=== PATIENT | female | born 1970 | race Hispanic/Latino ===

== ENCOUNTER 2022-01-18 08:32 | Outpatient (CLI) | payer OTHER | END 2022-01-18 08:33 | disposition home or self-care (01) | LOC: BICRAD 08:32 | PROVIDERS: ATTEND Family Medicine | DX: F17.200 Nicotine dependence, unspecified, uncomplicated (principal) | CPT/HCPCS: 71046 ==

== ENCOUNTER 2022-11-28 19:40 | Emergency (ER) | payer SELFPAY ==
[2022-11-28] MEDS ORDERED: Diazepam 5 MG TAB ONE (22:58)
[2022-11-28] MEDS ORDERED: Ketorolac Tromethamine 30 MG/ML VIAL ONE (22:58)
== END 2022-11-28 23:20 | disposition home or self-care (01) ==
LOC: ERS 19:40
DX: M54.30 Sciatica, unspecified side (principal); F17.210 Nicotine dependence, cigarettes, uncomplicated
CPT/HCPCS: 96372; 99283; J1885

== ENCOUNTER 2023-06-16 07:49 | Inpatient (IN) | payer SELFPAY ==
[2023-06-16] MEDS ORDERED: Morphine 4 MG/ML VIAL ONE ×2 (08:06→09:36)
[2023-06-16] MEDS ORDERED: Ondansetron PF 4 MG/2 ML Vial ONE (08:06)
[2023-06-16 08:12] LABS: Hematocrit 46.2 % (36.0-47.0); Hemoglobin 15.6 g/dL (12.0-16.0); Manual Diff?? YES; Mean Corpuscular HGB CONC 33.8 g/dL (32.0-36.0); Mean Corpuscular Hemoglobin 28.7 pg (27.0-31.0); Mean Corpuscular Volume 85.1 fl (78.0-98.0); Mean Platelet Volume 9.4 fL (7.4-10.4); Platelet Count 407 10x3/uL (130-400); RBC Distribution Width 17.3 % (11.5-14.5); Red Blood Cell (RBC) Count 5.43 mill/uL (4.20-5.40); White Blood Cell (WBC) Count 30.8 10x3/uL (4.8-10.8)
[2023-06-16 08:35] LABS: Delete Auto Diff?? YES
[2023-06-16 09:34] LABS: Anisocytosis MODERATE=16-30 cells HPF (0-5); Band 4 % (5-11); CellaVision Operator ID LAB.CMB; Hypochromia SLIGHT = 6-15 cells HPF (0-5); Lymphocytes 4 % (21-51); Macrocytosis MODERATE=16-30 cells HPF (0-5); Monocytes 5 % (0-10); Neutrophil 85 % (42-75); Platelet Adequacy Comment Platelets Increased; Polychromasia MARKED = >4 cells HPF (0-2); Reactive Lymphocytes 2 % (0-10); Total Cell Count 103
[2023-06-16] MEDS ORDERED: Piperacillin/Tazobactam 4.5 GM VIAL ONE (09:41)
[2023-06-16] MEDS ORDERED: Sodium Chloride 0.9% 100 ML ONE (09:41)
[2023-06-16] MEDS ORDERED: Vancomycin 1 GM/200 ML (FROZEN) BAG ONE (09:49)
[2023-06-16 10:08] LABS: Troponin I Less than 0.010 ng/mL (< 0.028)
[2023-06-16 10:52] LABS: Albumin 4.2 g/dL (3.5-5.0)
[2023-06-16 10:53] LABS: Calcium 9.4 mg/dL (7.8-10.44); Chloride 107 mmol/L (98-107); Potassium 3.4 mmol/L (3.5-5.1); Sodium 139 mmol/L (136-145)
[2023-06-16 10:54] LABS: Globulin 3.1 g/dL (2.4-3.5); Glucose 111 mg/dL (70-105); Protein, Total 7.3 g/dL (6.0-8.3)
[2023-06-16 10:56] LABS: Anion Gap 18 mmol/L (10-20); Bilirubin, Total 1.2 mg/dL (0.2-1.2); Carbon Dioxide 17 mmol/L (22-29)
[2023-06-16 10:57] LABS: Alkaline Phosphatase 86 U/L (40-110)
[2023-06-16 10:58] LABS: BUN (Urea Nitrogen) 15 mg/dL (9.8-20.1); Calc. Creatinine Clearance 0 mL/min (70-130); Estimated GFR 105
[2023-06-16 10:59] LABS: AST (SGOT) 13 U/L (5-34)
[2023-06-16 11:00] LABS: ALT (SGPT) 17 U/L (8-55); Lipase 9 U/L (8-78)
[2023-06-16] MEDS ORDERED: Ketorolac Tromethamine 30 MG (1 mL) VIAL ONE (12:00)
[2023-06-16 12:05] LABS: Lactic Acid 2.2 mmol/L (0.5-2.2)
[2023-06-16] MEDS ORDERED: Ondansetron ODT 4 MG TAB PO PRN (12:34)
[2023-06-16] MEDS ORDERED: Acetaminophen 325 MG TAB PO PRN (12:34)
[2023-06-16] MEDS ORDERED: Iopamidol-370 76% 500 ML MDV (1 ML CHARGE) ONE (13:02)
[2023-06-16 13:04] LABS: Bacteria/HPF None Seen HPF (None Seen); Bilirubin Negative (Negative); Blood, Urine Negative (Negative); CAUTI Indications for Culture Pelvic or flank pain; Clarity Clear (Clear); Glucose, Urine (Dipstick) Normal (Negative); Ketone, Urine 20 mg/dL (Negative); Leukocyte Negative Leu/uL (Negative); Nitrite Negative (Negative); Protein, Urine (Dipstick) Negative (Neg-Trace); RBC/HPF 0-3 HPF (0-3); Specific Gravity, Urine Greater than 1.060 (1.002-1.036); Squamous Epithelial 0-3 HPF (0-3); Urobilinogen Normal mg/dL (Less than 2); WBC/HPF 0-3 HPF (0-3); pH, Urine 7.5 (5.0-9.0)
[2023-06-16 13:05] LABS: Urine Culture Reflex No No
[2023-06-16 13:43] LABS: INR-International Normal Ratio 1.1; PTT 25.1 sec (22.9-36.1); Prothrombin Time 13.9 sec (12.0-14.7)
[2023-06-16 13:55] VITALS: BMI 27.1
[2023-06-16] MEDS: HYDROcodone/Acetaminophen 5/325 mg Tablet PO PRN ×2 (14:07→20:39)
[2023-06-16] MEDS: Sodium Chloride 0.9% 1,000 ML IV SCH ×2 (14:08→23:28)
[2023-06-16] MEDS: Ondansetron PF 4 MG/2 ML Vial IVP PRN ×2 (14:56→20:40)
[2023-06-16] MEDS ORDERED: Electrolyte Replacement Protocol 1 EACH FS PRN (16:00)
[2023-06-16] MEDS: Morphine 2 MG/ML VIAL SLOW IVP PRN ×3 (16:17→23:28)
[2023-06-16] MEDS: Phenol 177 ML BOT PO PRN ×2 (20:40→23:28)
[2023-06-17] MEDS: traMADol HCl 50 MG TAB PO PRN ×4 (00:43→19:53)
[2023-06-17] MEDS: HYDROcodone/Acetaminophen 5/325 mg Tablet PO PRN (03:37)
[2023-06-17] MEDS: Phenol 177 ML BOT PO PRN ×4 (03:41→19:54)
[2023-06-17] MEDS ORDERED: Potassium Chloride 20 MEQ TAB PO SCH (08:00)
[2023-06-17] MEDS: Sodium Chloride 0.9% 1,000 ML IV SCH ×2 (08:31→22:36)
[2023-06-17 09:22] LABS: #Monocytes 1.7 thou/uL (0.11-0.59); #Neutrophils 9.4 thou/uL (1.40-6.50); %Basophils 0.2 % (0.0-1.0); %Eosinophils 0.3 % (0.0-10.0); %Lymphocytes 15.5 % (21.0-51.0); %Neutrophils 70.8 % (42.0-75.0); Hematocrit 39.3 % (36.0-47.0); Hemoglobin 12.8 g/dL (12.0-16.0); Mean Corpuscular HGB CONC 32.6 g/dL (32.0-36.0); Mean Corpuscular Hemoglobin 28.3 pg (27.0-31.0); Mean Corpuscular Volume 86.9 fl (78.0-98.0); Mean Platelet Volume 10.9 fL (7.4-10.4); Platelet Count 384 10x3/uL (130-400); RBC Distribution Width 17.5 % (11.5-14.5); Red Blood Cell (RBC) Count 4.52 mill/uL (4.20-5.40); White Blood Cell (WBC) Count 13.3 10x3/uL (4.8-10.8)
[2023-06-17 09:44] LABS: ALT (SGPT) 16 U/L (8-55); AST (SGOT) 11 U/L (5-34); Albumin 4.1 g/dL (3.5-5.0); Alkaline Phosphatase 68 U/L (40-110); Anion Gap 15 mmol/L (10-20); BUN (Urea Nitrogen) 20 mg/dL (9.8-20.1); Bilirubin, Total 1.5 mg/dL (0.2-1.2); Calc. Creatinine Clearance 112 mL/min (70-130); Calcium 9.2 mg/dL (7.8-10.44); Carbon Dioxide 23 mmol/L (22-29); Chloride 107 mmol/L (98-107); Estimated GFR 104; Globulin 3.2 g/dL (2.4-3.5); Glucose 98 mg/dL (70-105); Potassium 3.8 mmol/L (3.5-5.1); Protein, Total 7.3 g/dL (6.0-8.3); Sodium 141 mmol/L (136-145)
[2023-06-17] MEDS: Morphine 2 MG/ML VIAL SLOW IVP PRN ×3 (12:33→22:36)
[2023-06-18] MEDS: traMADol HCl 50 MG TAB PO PRN ×5 (00:03→22:50)
[2023-06-18] MEDS: Morphine 2 MG/ML VIAL SLOW IVP PRN ×5 (02:36→21:21)
[2023-06-18 05:36] LABS: #Eosinphils 0.3 thou/uL (0.0-0.7); #Monocytes 1.7 thou/uL (0.11-0.59); #Neutrophils 7.7 thou/uL (1.40-6.50); %Basophils 0.3 % (0.0-1.0); %Eosinophils 2.4 % (0.0-10.0); %Lymphocytes 24.7 % (21.0-51.0); %Neutrophils 59.3 % (42.0-75.0); Hematocrit 33.3 % (36.0-47.0); Hemoglobin 10.8 g/dL (12.0-16.0); Mean Corpuscular HGB CONC 32.4 g/dL (32.0-36.0); Mean Corpuscular Hemoglobin 28.8 pg (27.0-31.0); Mean Corpuscular Volume 88.8 fl (78.0-98.0); Mean Platelet Volume 9.5 fL (7.4-10.4); Platelet Count 335 10x3/uL (130-400); RBC Distribution Width 17.3 % (11.5-14.5); Red Blood Cell (RBC) Count 3.75 mill/uL (4.20-5.40); White Blood Cell (WBC) Count 12.9 10x3/uL (4.8-10.8)
[2023-06-18] MEDS: Sodium Chloride 0.9% 1,000 ML IV SCH ×2 (06:32→16:11)
[2023-06-18] MEDS: Phenol 177 ML BOT PO PRN (16:11)
[2023-06-19] MEDS: Morphine 2 MG/ML VIAL SLOW IVP PRN ×2 (01:35→05:25)
[2023-06-19] MEDS: Phenol 177 ML BOT PO PRN (01:35)
[2023-06-19] MEDS: Sodium Chloride 0.9% 1,000 ML IV SCH ×2 (03:29→12:12)
[2023-06-19] MEDS: traMADol HCl 50 MG TAB PO PRN ×3 (04:16→23:32)
[2023-06-19 05:41] LABS: #Eosinphils 0.1 thou/uL (0.0-0.7); #Monocytes 1.4 thou/uL (0.11-0.59); #Neutrophils 7.9 thou/uL (1.40-6.50); %Basophils 0.3 % (0.0-1.0); %Eosinophils 1.1 % (0.0-10.0); %Lymphocytes 17.6 % (21.0-51.0); %Monocytes 12.1 % (0.0-10.0); %Neutrophils 68.6 % (42.0-75.0); Hematocrit 33.9 % (36.0-47.0); Hemoglobin 11.2 g/dL (12.0-16.0); Mean Corpuscular Hemoglobin 29.2 pg (27.0-31.0); Mean Corpuscular Volume 88.3 fl (78.0-98.0); Mean Platelet Volume 9.4 fL (7.4-10.4); Platelet Count 348 10x3/uL (130-400); RBC Distribution Width 17.3 % (11.5-14.5); Red Blood Cell (RBC) Count 3.84 mill/uL (4.20-5.40); White Blood Cell (WBC) Count 11.6 10x3/uL (4.8-10.8)
[2023-06-19 08:13] LABS: Anion Gap 15 mmol/L (10-20); BUN (Urea Nitrogen) 15 mg/dL (9.8-20.1); Calc. Creatinine Clearance 132 mL/min (70-130); Calcium 8.3 mg/dL (7.8-10.44); Carbon Dioxide 19 mmol/L (22-29); Chloride 108 mmol/L (98-107); Estimated GFR 108; Magnesium 1.8 mg/dL (1.6-2.6); Phosphorus 3.2 mg/dL (2.3-4.7); Potassium 3.4 mmol/L (3.5-5.1); Sodium 139 mmol/L (136-145)
[2023-06-19 08:18] LABS: Glucose 44 mg/dL (70-105)
[2023-06-19] MEDS: Acetaminophen 500 MG TAB PO SCH ×3 (08:21→20:00)
[2023-06-19] MEDS ORDERED: Glucagon 1 MG/ML KIT IM PRN (08:36)
[2023-06-19] MEDS ORDERED: Dextrose 5% in Water 1,000 ML IV PRN (08:36)
[2023-06-19] MEDS ORDERED: Dextrose 50% Abboject 50 ML SYRINGE SLOW IVP PRN (08:36)
[2023-06-19] MEDS ORDERED: Magnesium 2 GM/50 ML(in water) 2 GM in Premix 1 BAG IVPB SCH (09:00)
[2023-06-19] MEDS ORDERED: Potassium Chloride 20 MEQ TAB PO SCH ×2 (09:00→13:00)
[2023-06-19] MEDS: Ondansetron PF 4 MG/2 ML Vial IVP PRN (19:33)
[2023-06-20] MEDS: Acetaminophen 500 MG TAB PO SCH ×4 (02:45→20:35)
[2023-06-20] MEDS: traMADol HCl 50 MG TAB PO PRN ×2 (04:06→13:00)
[2023-06-20 05:37] LABS: #Eosinphils 0.1 thou/uL (0.0-0.7); #Monocytes 1.3 thou/uL (0.11-0.59); #Neutrophils 5.3 thou/uL (1.40-6.50); %Basophils 0.3 % (0.0-1.0); %Eosinophils 1.4 % (0.0-10.0); %Lymphocytes 22.8 % (21.0-51.0); %Monocytes 14.4 % (0.0-10.0); %Neutrophils 60.6 % (42.0-75.0); Hematocrit 33.9 % (36.0-47.0); Hemoglobin 11.3 g/dL (12.0-16.0); Mean Corpuscular HGB CONC 33.3 g/dL (32.0-36.0); Mean Corpuscular Hemoglobin 29.4 pg (27.0-31.0); Mean Corpuscular Volume 88.1 fl (78.0-98.0); Mean Platelet Volume 9.6 fL (7.4-10.4); Platelet Count 379 10x3/uL (130-400); RBC Distribution Width 17.2 % (11.5-14.5); Red Blood Cell (RBC) Count 3.85 mill/uL (4.20-5.40); White Blood Cell (WBC) Count 8.8 10x3/uL (4.8-10.8)
[2023-06-20 06:00] LABS: Anion Gap 13 mmol/L (10-20); BUN (Urea Nitrogen) 5 mg/dL (9.8-20.1); Calc. Creatinine Clearance 125 mL/min (70-130); Calcium 8.4 mg/dL (7.8-10.44); Carbon Dioxide 20 mmol/L (22-29); Chloride 110 mmol/L (98-107); Estimated GFR 107; Glucose 99 mg/dL (70-105); Potassium 3.7 mmol/L (3.5-5.1); Sodium 139 mmol/L (136-145)
[2023-06-20 06:03] LABS: Phosphorus 2.1 mg/dL (2.3-4.7)
[2023-06-20] MEDS ORDERED: Magnesium 2 GM/50 ML(in water) 2 GM in Premix 1 BAG IVPB SCH (08:00)
[2023-06-20] MEDS: PHOS-NAK 1 PKT PACK PO SCH ×2 (09:26→20:34)
[2023-06-20] MEDS: Ondansetron PF 4 MG/2 ML Vial IVP PRN (14:14)
[2023-06-20] MEDS ORDERED: Ibuprofen 200 MG TAB PO PRN (14:53)
[2023-06-20] MEDS ORDERED: Scopolamine 1 mg/72 hour Patch TD SCH (15:00)
[2023-06-21] MEDS: Ondansetron PF 4 MG/2 ML Vial IVP PRN (01:19)
[2023-06-21] MEDS: Acetaminophen 500 MG TAB PO SCH ×2 (02:19→10:43)
[2023-06-21] MEDS ORDERED: Famotidine/PF 20 mg/2ml Vial SLOW IVP SCH (03:00)
[2023-06-21] MEDS ORDERED: Ketorolac Tromethamine 30 MG (1 mL) VIAL IVP SCH (03:00)
[2023-06-21 08:35] VITALS: BP 135/78; TEMP 97.8
[2023-06-21] MEDS ORDERED: Famotidine 20 MG TAB PO SCH (10:30)
== END 2023-06-21 13:00 | disposition home or self-care (01) | DRG 390 ==
LOC: ERS 07:49 → SURG A 12:33
PROVIDERS: ADMIT Student in an Organized Health Care Education/Training Program; ATTEND Student in an Organized Health Care Education/Training Program
DX: K56.609 Unspecified intestinal obstruction, unspecified as to partial versus complete obstruction (principal); M54.50 Low back pain, unspecified; G89.29 Other chronic pain; K21.9 Gastro-esophageal reflux disease without esophagitis; K46.9 Unspecified abdominal hernia without obstruction or gangrene; F17.210 Nicotine dependence, cigarettes, uncomplicated; D72.829 Elevated white blood cell count, unspecified; D64.9 Anemia, unspecified; R19.7 Diarrhea, unspecified
CPT/HCPCS: 36415; 36416; 43753; 71045; 74018; 74177; 80048; 80053; 81001; 83605; 83690; 83735; 84100; 84484; 85025; 85610; 85730; 87040; 87086; 93005; 94760; 96365; 96366; 96375; 96376; J1885; J2270; J2272; J2405; J2543; J3370-JW; J3475; J3490; J7050; J7070; Q9967; S0028